=== PATIENT | female | born 1950 | race Caucasian/White ===

== ENCOUNTER 2016-08-02 08:19 | Day surgery (SDC) | payer BC ==
[2016-07-28 10:23] LABS: BASOPHILS 0.7 %; BASOPHILS ABSOLUTE 0.04 10/3/uL (0.0-0.16); EOSINOPHILS 1.9 %; EOSINOPHILS ABSOLUTE 0.11 10/3/uL (0.0-0.53); HEMATOCRIT 43.3 % (36.0-48.0); HEMOGLOBIN 14.7 g/dL (12.0-16.0); LYMPHOCYTES 25.2 %; LYMPHOCYTES ABSOLUTE 1.44 10/3/uL (0.67-4.30); MEAN CORPUS HGB CONC 33.9 g/dL (32.0-36.0); MEAN CORPUSCULAR HEMOGLOB 28.7 pg (26.0-34.0); MEAN CORPUSCULAR VOLUME 84.6 fL (80-100); MEAN PLATELET VOLUME 11.5 fL (9.2-13.0); NEUTROPHILS 65.2 %; NEUTROPHILS ABSOLUTE 3.72 10/3/uL (2.02-8.40); PLATELET COUNT 267 10/3/uL (150-400); RBC DISTRIBUTION WIDTH 13.1 % (12.0-16.0); RED CELL COUNT 5.12 10/6/uL (4.0-5.6); WHITE BLOOD CELLS 5.7 10/3/uL (4.5-10.5)
[2016-07-28 10:25] LABS: MANUAL DIFF NO %
[2016-07-28 10:36] LABS: BUN (BLOOD UREA NITROGEN) 16 MG/DL (6-23); CALCIUM, SERUM 9.5 MG/DL (8.5-10.4); CHLORIDE, SERUM 102 MMOL/L (96-112); CO2 (CARBON DIOXIDE) 32 MMOL/L (24-34); CREATININE 0.79 MG/DL (0.55-1.02); GFR AFRICAN AMERICAN 92 ML/MIN (>=60); GFR NON AFRICAN AMERICAN 79 ML/MIN (>=60); GLUCOSE, SERUM 113 MG/DL (60-99); POTASSIUM, SERUM 3.5 MMOL/L (3.5-5.3); SODIUM, SERUM 142 MMOL/L (135-148)
--- NOTE | ~2016-08-02 | OP ---
Record Of Operation [facility] [address] [place]. [address] NAME: KAYLA HILL : 54 STATUS : REG [facility] [place] PAT#: [id number] AGE: 66 ADM/REG DATE : 08/02/16 MR#: [id number] REPORT SERV DATE: 08/02/16 DICTATED BY: JD CONSTANTINO DATE: 08/02/16 REPORT STATUS : Draft TRANSCRIBED BY: MODL DATE: 08/02/16 DATE OF PROCEDURE: 08/02/2016 PREOPERATIVE DIAGNOSIS: Small cell carcinoma. POSTOPERATIVE DIAGNOSIS: Small cell carcinoma. PROCEDURE: Port-A-Cath placement. ATTENDING: Jd Constantino M.D. CHIEF RESIDENT: Kenn Gaviria MD. ANESTHESIA: MAC with local. IV FLUIDS: 1 L. ESTIMATED BLOOD LOSS: 5 mL. COMPLICATIONS: None. COUNTS: Correct. SPECIMEN: None. DESCRIPTION OF PROCEDURE: The patient was brought to the operating room and placed supine on the operating room table. Anesthetic was administered and titrated to effect. Neck and chest were prepped and draped in a standard sterile fashion. Ultrasound was used to identify the left IJ. Local anesthetic was given over the left neck and left chest where the Port-A-Cath site was. Using the ultrasound, the left IJ was cannulated and wire was passed. Ectopy was achieved. Fluoroscopy was used to assure that the wire traversed across the right side of the chest. Next, an incision was made to accommodate the port on the chest. Electrocautery was used and carried down to the level of the pectoral fascia. The pocket for the port was created with blunt dissection. Two 3-0 Vicryls were placed and threaded through the port that would later be used to secure it. Next, the introducer dilator complex was passed over the wire into the IJ after the small incision was made through the skin, where the wire entered. The wire and dilator were withdrawn while the sheath was advanced. The catheter was inserted to about 25 and the sheath was withdrawn. Next, the catheter was tunneled toward down to the port site and this was appropriately trimmed after fluoroscopy demonstrated the catheter tip terminated to just pass the atrial- caval junction. The port was attached to the catheter and clasp secured and was placed in the wound. The port michelle and flushed appropriately. A final shot of fluoroscopy ensured adequate placement. The subcutaneous tissue was closed with 3-0 Vicryl, and the skin was closed superficially in subcuticular fashion, likewise with 3-0 Vicryl. Steri-Strips and Telfa and Tegaderm were used to cover the wound. At this point, the procedure was terminated. The patient was awakened and transferred to the recovery area. Record Of Operation [address] [place]. [address] NAME: KAYLA HILL : 54 STATUS : REG [facility] [place] PAT#: [id number] AGE: 66 ADM/REG DATE : 08/02/16 MR#: [id number] REPORT SERV DATE: 08/02/16 DICTATED BY: JD CONSTANTINO DATE: 08/02/16 REPORT STATUS : Draft TRANSCRIBED BY: TONY DATE: 08/02/16 DICTATED BY: Kenn Gaviria MD ND/TONY Jd Constantino M.D. / [id number] CC: Jd Constantino M.D.
[~2016-08-02 08:19] MED LIST: 8 HOUR650 MG PO; ASAB PO; MAX25 PO; VITAMIN B-121000 MC1 SL; VITE PO
== END 2016-08-02 15:33 | disposition home or self-care (01) ==
LOC: SDC 08:19
PROVIDERS: Specialist
PROC: 0JH60XZ Insertion of Tunneled Vascular Access Device into Chest Subcutaneous Tissue and Fascia, Open Approach (ICD-10-PCS; principal; 2016-08-02 10:00)
DX: I87.8 Other specified disorders of veins (principal); I10 Essential (primary) hypertension; I89.0 Lymphedema, not elsewhere classified
CPT/HCPCS: 71010; 77001; 80048; 85025; 93005; C1788; J0690; J2250; J2405; J3010; Q9967